=== PATIENT | female | born 1940 | race American Indian/Alaskan Native ===

== ENCOUNTER 2017-08-31 13:16 | Emergency (ER) | payer MEDICARE ==
--- NOTE | 2017-08-31 15:47 | Cat Scan Report ---
FINAL REPORT EXAM: CT CERVICAL SPINE WO CON HISTORY: pain in the neck TECHNIQUE: Standard CT cervical spine obtained at 1.25 millimeter axial increments. Coronal and sagittal reconstruction was also performed. PRIORS: None. FINDINGS: The vertebral bodies are intact. There is no evidence for acute fracture. There is no evidence for paravertebral soft tissue swelling. Bilateral facet joint hypertrophic changes are present throughout the cervical spine. Severe disc space narrowing to at C5-C6 is seen with moderate narrowing from C3 through C7. Spurring anteriorly and posteriorly is noted. Straightening of the normal cervical curvature is present around C5-C6, likely degenerative in nature. IMPRESSION: No acute abnormality of the cervical spine. Extensive degenerative changes from C3 through C7.
[2017-08-31] MEDS ORDERED: MOTRIN PO ONE (20:41)
--- NOTE | 2017-08-31 20:45 | Emergency Department Report ---
HPI - General Chief Complaint: Neck Pain/Injury Time Seen by Provider: 08/31/17 19:59 - HPI HPI: This is a 77 year-old female presents to the emergency department, driving herself and to be seen, with complaint of some neck discomfort. The patient tripped while edging her grass on Friday, 2 days ago. She denies any head or any loss of conscious. It is not tender to palpation but the pain occurs when she is trying to turn her head and she has some pain when she is trying to lay down. She has a past medical history of hypertension and hypercholesterolemia. Her primary care physician is Dr. Gasper Reaves. She has not taken anything for her symptoms prior to presentation. She denies any headache, vision change, numbness or paresthesias. ED Past Medical Hx - Past Medical History Hx Hypertension: Yes Additional medical history: cholesterol, "pre-diabetes" - Surgical History Additional Surgical History: hysterectomy - Social History Smoking Status: Never Smoker Substance Use Type: None - Medications Home Medications: Home Medications Medication Instructions Recorded Confirmed Last Taken Type Diazepam Tab [Valium] 2 mg PO TID PRN #8 tablet 08/31/17 Unknown Rx Ibuprofen [Motrin 600 MG tab] 600 mg PO Q8H PRN #20 tablet 08/31/17 Unknown Rx ED Review of Systems ROS: Stated complaint: NECK PAIN POST FALL Other details as noted in HPI Comment: All other systems reviewed and negative Constitutional: denies: chills, fever Eyes: denies: eye pain, eye discharge, vision change ENT: denies: ear pain, throat pain Respiratory: denies: cough, shortness of breath, wheezing Cardiovascular: denies: chest pain, palpitations Gastrointestinal: denies: abdominal pain, nausea, diarrhea Genitourinary: denies: urgency, dysuria, discharge Musculoskeletal: other (neck pain). denies: back pain Skin: denies: rash, lesions Neurological: denies: headache, weakness, numbness, paresthesias Physical Exam - Physical Exam Vital Signs: Vital Signs 08/31/17 14:27 Temperature 98.0 F Pulse Rate 76 Respiratory 16 Rate Blood Pressure 137/75 O2 Sat by Pulse 97 Oximetry Physical Exam: GENERAL: The patient is well-developed well-nourished. HENT: Normocephalic. Atraumatic. Patient has moist mucous membranes. EYES: Extraocular motions are intact. Pupils equal reactive to light bilaterally. NECK: Supple. Trachea is midline. No midline tenderness to palpation, step- off or deformity. She has full range of motion but rotation of the head at the neck causes discomfort. There is some time paraspinal musculature and goes down to the shoulders consistent with a trapezius muscle. CHEST/LUNGS: Clear to auscultation. There is no respiratory distress noted. HEART/CARDIOVASCULAR: Regular. There is no tachycardia. There is no gallop rub or murmur. ABDOMEN: Abdomen is soft, nontender. Patient has normal bowel sounds. There is no abdominal distention. SKIN: Skin is warm and dry.. NEURO: The patient is awake, alert, and oriented. The patient is cooperative. The patient has no focal neurologic deficits. The patient has normal speech. MUSCULOSKELETAL: There is no tenderness or deformity. There is no limitation range of motion. There is no evidence of acute injury. Radial pulses +2 over 4 bilaterally. ED Course Vital Signs 08/31/17 14:27 Temperature 98.0 F Pulse Rate 76 Respiratory 16 Rate Blood Pressure 137/75 O2 Sat by Pulse 97 Oximetry ED Medical Decision Making - Radiology Data Radiology results: report reviewed EXAM: CT CERVICAL SPINE WO CON HISTORY: pain in the neck TECHNIQUE: Standard CT cervical spine obtained at 1.25 millimeter axial increments. Coronal and sagittal reconstruction was also performed. PRIORS: None. FINDINGS: The vertebral bodies are intact. There is no evidence for acute fracture. There is no evidence for paravertebral soft tissue swelling. Bilateral facet joint hypertrophic changes are present throughout the cervical spine. Severe disc space narrowing to at C5-C6 is seen with moderate narrowing from C3 through C7. Spurring anteriorly and posteriorly is noted. Straightening of the normal cervical curvature is present around C5-C6, likely degenerative in nature. IMPRESSION: No acute abnormality of the cervical spine. Extensive degenerative changes from C3 through C7. - Medical Decision Making 77-year-old female presents with some neck pain mostly only occurs with movement of the head. There are no focal, motor or sensory deficits. She does not have any numbness or paresthesias. CT of the cervical spine was done that shows degenerative changes from C3 to C7 but no fracture, subluxation or any acute process. The patient drove herself in to be seen today so no muscle relaxers or narcotic pain medications were given but she was given some ibuprofen. She will go home with some low-dose muscle relaxant and encouraged follow-up with her PCP. She was also given a referral for the neurosurgeon. She'll return to the ER for any worsening of her symptoms or any acute distress. Critical Care Time: No Critical care attestation.: If time is entered above; I have spent that time in minutes in the direct care of this critically ill patient, excluding procedure time. ED Disposition Clinical Impression: Neck pain Disposition: DC-01 TO HOME OR SELFCARE Is pt being admited?: No Condition: Stable Instructions: Cervical Sprain (ED) Additional Instructions: Please follow-up with your primary care physician in the next few days. I have also given a referral for a local neurosurgeon, Dr. Zafar, in order to follow up regarding your neck pain. Return to the emergency Department with any worsening of her symptoms, numbness or tingling, weakness, or any acute distress. You have been prescribed a medication that is sedating and therefore should not be taken prior to driving, working, and responsible for children and in no way should be mixed with alcohol of any quantity. Prescriptions: Diazepam Tab [Valium] 2 mg PO TID PRN #8 tablet PRN Reason: Muscle Spasm Ibuprofen [Motrin 600 MG tab] 600 mg PO Q8H PRN #20 tablet PRN Reason: Pain Referrals: PRIMARY CARE, [Primary Care Provider] - 3-5 Days GASPER REAVES MD [Staff Physician] - 3-5 Days KELSEY ZAFAR MD [Staff Physician] - 3-5 Days Time of Disposition: 20:49
[2017-08-31 21:55] VITALS: BP 140/83
== END 2017-08-31 21:57 | disposition home or self-care (01) ==
LOC: ED 13:16
DX: M54.2 Cervicalgia (principal); E78.00 Pure hypercholesterolemia, unspecified; W18.39XA Other fall on same level, initial encounter; Y93.89 Activity, other specified; Y92.89 Other specified places as the place of occurrence of the external cause; Y99.8 Other external cause status
CPT/HCPCS: 72125

== ENCOUNTER 2018-07-09 13:14 | Outpatient (CLI) | payer MEDICARE ==
--- NOTE | 2018-07-10 08:57 | Mammography Report ---
BILATERAL DIGITAL SCREENING MAMMOGRAM with CAD: 07/09/18 13:14:00 CLINICAL: Routine screening. COMPARISON:01/05/16 FINDINGS: The breasts are heterogeneously dense, which may obscure small masses. No mass, architectural distortion or suspicious calcifications. IMPRESSION: No mammographic evidence of malignancy. BI-RADS CATEGORY: 1 - - Negative RECOMMENDATION: Routine mammographic screening in one year. COMMENT: Patient follow-up letters are generated by our [facility] application.
== END 2018-07-09 13:15 | disposition home or self-care (01) ==
LOC: MAMMO 13:14
PROVIDERS: ATTEND Internal Medicine
DX: Z12.31 Encounter for screening mammogram for malignant neoplasm of breast (principal); I10 Essential (primary) hypertension; Z90.710 Acquired absence of both cervix and uterus
CPT/HCPCS: 77067